=== PATIENT | male | born 1950 | race Caucasian/White ===

== ENCOUNTER 2023-09-05 16:57 | Inpatient (IN) | payer OTHER ==
[~2023-09-05 16:57] MED LIST: Iopamidol-370 76% 500 ML MDV (1 ML CHARGE) ONE
[2023-09-05] MEDS ORDERED: Metoprolol Tartrate 5 MG (5 mL) VIAL ONE (17:27)
[2023-09-05] MEDS ORDERED: Magnesium 2 GM/50 ML BAG (IN WATER) ONE ×2 (17:27→17:29)
[2023-09-05] MEDS ORDERED: CALCIUM GLUC 1 GM (50 ML) BAG ONE (17:31)
[2023-09-05 17:39] LABS: #Basophils 0.1 thou/uL (0.0-0.2); #Monocytes 1.7 thou/uL (0.11-0.59); #Neutrophils 14.8 thou/uL (1.40-6.50); %Basophils 0.3 % (0.0-1.0); %Eosinophils 0.1 % (0.0-10.0); %Lymphocytes 7.2 % (21.0-51.0); %Monocytes 9.6 % (0.0-10.0); %Neutrophils 82.4 % (42.0-75.0); Hematocrit 43.2 % (42.0-52.0); Hemoglobin 14.8 g/dL (14.0-18.0); Mean Corpuscular HGB CONC 34.3 g/dL (32.0-36.0); Mean Corpuscular Hemoglobin 31.7 pg (27.0-31.0); Mean Corpuscular Volume 92.5 fl (78.0-98.0); Mean Platelet Volume 10.8 fL (7.4-10.4); Platelet Count 215 10x3/uL (130-400); RBC Distribution Width 12.8 % (11.5-14.5); Red Blood Cell (RBC) Count 4.67 mill/uL (4.70-6.10); White Blood Cell (WBC) Count 17.9 10x3/uL (4.8-10.8)
[2023-09-05 18:02] LABS: ALT (SGPT) 9 U/L (8-55); AST (SGOT) 16 U/L (5-34); Albumin 3.6 g/dL (3.4-4.8); Alkaline Phosphatase 79 U/L (40-110); Anion Gap 12 mmol/L (10-20); BUN (Urea Nitrogen) 12 mg/dL (8.4-25.7); Bilirubin, Total 0.9 mg/dL (0.2-1.2); Calc. Creatinine Clearance 0 mL/min (70-130); Calcium 8.4 mg/dL (7.8-10.44); Carbon Dioxide 24 mmol/L (23-31); Chloride 102 mmol/L (98-107); Estimated GFR 92; Glucose 130 mg/dL (83-110); Magnesium 1.9 mg/dL (1.6-2.6); Potassium 4.2 mmol/L (3.5-5.1); Protein, Total 7.6 g/dL (5.8-8.1); Sodium 134 mmol/L (136-145)
[2023-09-05 18:09] LABS: Troponin I Less than 0.010 ng/mL (< 0.028)
[2023-09-05] MEDS ORDERED: Acetaminophen 325 MG TAB PO PRN (21:15)
[2023-09-05] MEDS ORDERED: Ondansetron ODT 4 MG TAB SL PRN (21:15)
[2023-09-05] MEDS ORDERED: Ondansetron PF 4 MG/2 ML Vial IVP PRN (21:15)
[2023-09-05 21:33] LABS: Bacteria/HPF None Seen HPF (None Seen); Bilirubin Negative (Negative); Blood, Urine Trace (Negative); CAUTI Indications for Culture Pelvic or flank pain; Clarity Clear (Clear); Glucose, Urine (Dipstick) Normal (Negative); Ketone, Urine Trace mg/dL (Negative); Leukocyte Negative Leu/uL (Negative); Nitrite Negative (Negative); Protein, Urine (Dipstick) Negative (Neg-Trace); RBC/HPF 0-3 HPF (0-3); Specific Gravity, Urine 1.008 (1.002-1.036); Squamous Epithelial None Seen HPF (0-3); Urobilinogen Normal mg/dL (Less than 2); WBC/HPF 0-3 HPF (0-3)
[2023-09-05 21:34] LABS: Urine Culture Reflex No No
[2023-09-05 22:16] LABS: Troponin I Less than 0.010 ng/mL (< 0.028)
[2023-09-05] MEDS ORDERED: Dextrose 50% Abboject 50 ML SYRINGE SLOW IVP PRN (23:39)
[2023-09-05] MEDS ORDERED: Dextrose 5% in Water 1,000 ML IV PRN (23:39)
[2023-09-05] MEDS ORDERED: HumaLOG 300 UNITS/3 ML VIAL SC PRN ×2 (23:39)
[2023-09-05] MEDS ORDERED: Glucagon 1 MG/ML KIT IM PRN (23:39)
[2023-09-05] MEDS ORDERED: Venlafaxine HCl XR 150 MG CAP PO SCH (23:59)
[2023-09-06] MEDS: Enoxaparin 100 MG (1 mL) SYRINGE SC SCH ×3 (00:04→23:09)
[2023-09-06 01:30] LABS: Troponin I Less than 0.010 ng/mL (< 0.028)
[2023-09-06] MEDS: Metoprolol Tartrate 5 MG (5 mL) VIAL IVP PRN ×3 (04:53→08:46)
[2023-09-06 06:38] LABS: #Monocytes 1.5 thou/uL (0.11-0.59); #Neutrophils 13.4 thou/uL (1.40-6.50); %Basophils 0.3 % (0.0-1.0); %Eosinophils 0.1 % (0.0-10.0); %Lymphocytes 5.7 % (21.0-51.0); %Monocytes 9.2 % (0.0-10.0); %Neutrophils 84.3 % (42.0-75.0); Hematocrit 51.2 % (42.0-52.0); Hemoglobin 17.2 g/dL (14.0-18.0); Mean Corpuscular HGB CONC 33.6 g/dL (32.0-36.0); Mean Corpuscular Hemoglobin 31.7 pg (27.0-31.0); Mean Corpuscular Volume 94.5 fl (78.0-98.0); Mean Platelet Volume 10.4 fL (7.4-10.4); Platelet Count 207 10x3/uL (130-400); RBC Distribution Width 13.1 % (11.5-14.5); Red Blood Cell (RBC) Count 5.42 mill/uL (4.70-6.10); White Blood Cell (WBC) Count 15.9 10x3/uL (4.8-10.8)
[2023-09-06 07:10] LABS: Anion Gap 14 mmol/L (10-20); BUN (Urea Nitrogen) 10 mg/dL (8.4-25.7); Calc. Creatinine Clearance 112 mL/min (70-130); Calcium 9.2 mg/dL (7.8-10.44); Carbon Dioxide 21 mmol/L (23-31); Chloride 104 mmol/L (98-107); Estimated GFR 94; Glucose 116 mg/dL (83-110); Sodium 135 mmol/L (136-145)
[2023-09-06] MEDS ORDERED: Enoxaparin 40 MG (0.4 mL) SYRINGE SC SCH (09:00)
[2023-09-06] MEDS ORDERED: dilTIAZem 25 MG/5 ML VIAL SLOW IVP SCH (12:30)
[2023-09-06] MEDS ORDERED: dilTIAZem 125 MG in Sodium Chloride 0.9% 100 ML IVPB SCH ×2 (13:00→23:30)
[2023-09-06 15:53] LABS: SARS-CoV-2 NAA Rapid Test Not Detected (NotDetected)
[2023-09-06] MEDS: Acetaminophen 500 MG TAB PO PRN (16:19)
[2023-09-06] MEDS: Venlafaxine HCl XR 150 MG CAP PO SCH (20:02)
[2023-09-06] MEDS: Metoprolol Tartrate 25 MG TAB PO SCH (20:44)
[2023-09-06] MEDS ORDERED: traMADol HCl 50 MG TAB PO PRN (22:46)
[2023-09-06] MEDS: traMADol HCl 50 MG TAB PO PRN (23:38)
[2023-09-07] MEDS ORDERED: Digoxin 0.5 MG/2 ML AMP SLOW IVP SCH (01:15)
[2023-09-07 06:27] LABS: Anion Gap 17 mmol/L (10-20); BUN (Urea Nitrogen) 18 mg/dL (8.4-25.7); Calc. Creatinine Clearance 107 mL/min (70-130); Calcium 8.4 mg/dL (7.8-10.44); Carbon Dioxide 18 mmol/L (23-31); Chloride 102 mmol/L (98-107); Estimated GFR 92; Glucose 97 mg/dL (83-110); Potassium 4.2 mmol/L (3.5-5.1); Sodium 133 mmol/L (136-145)
[2023-09-07 06:36] LABS: Lactic Acid 1.6 mmol/L (0.5-2.2)
[2023-09-07] MEDS: Metoprolol Tartrate 25 MG TAB PO SCH ×2 (09:43→20:44)
[2023-09-07 10:04] LABS: Hematocrit 42.8 % (42.0-52.0); Hemoglobin 14.4 g/dL (14.0-18.0); Manual Diff?? YES; Mean Corpuscular HGB CONC 33.6 g/dL (32.0-36.0); Mean Corpuscular Hemoglobin 31.2 pg (27.0-31.0); Mean Corpuscular Volume 92.8 fl (78.0-98.0); Mean Platelet Volume 11.1 fL (7.4-10.4); Platelet Count 175 10x3/uL (130-400); RBC Distribution Width 13.3 % (11.5-14.5); Red Blood Cell (RBC) Count 4.61 mill/uL (4.70-6.10); White Blood Cell (WBC) Count 20.3 10x3/uL (4.8-10.8)
[2023-09-07 10:29] LABS: Delete Auto Diff?? YES
[2023-09-07] MEDS ORDERED: Amiodarone 150 MG in Dextrose 5% in Water 100 ML IVPB SCH (11:00)
[2023-09-07] MEDS ORDERED: Furosemide 40 MG (4 mL) VIAL SLOW IVP SCH (11:30)
[2023-09-07] MEDS: Enoxaparin 100 MG (1 mL) SYRINGE SC SCH ×2 (11:37→23:01)
[2023-09-07] MEDS: Amiodarone 450 MG, Admixture Fee 1 EACH in Dextrose 5% in Water 250 ML IVPB SCH ×2 (11:40→20:00)
[2023-09-07 11:55] LABS: Band 8 % (5-11); Lymphocytes 3 % (21-51); Metamyelocyte 1 % (0-0); Monocytes 3 % (0-10); Neutrophil 85 % (42-75)
[2023-09-07 11:56] LABS: Platelet Adequacy Comment Appears Adequate
[2023-09-07] MEDS: Acetaminophen 500 MG TAB PO PRN (12:04)
[2023-09-07] MEDS ORDERED: VANCOMYCIN IVPB PRN (12:28)
[2023-09-07 12:30] LABS: Hemoglobin A1c 6.4 % (4.0-6.0)
[2023-09-07] MEDS ORDERED: Piperacillin/Tazobactam 3.375 GM in Sodium Chloride 0.9% 100 ML IVPB SCH (14:00)
[2023-09-07] MEDS ORDERED: Vancomycin (BATCH) 2 GM in Premix 1 BAG IVPB SCH (14:00)
[2023-09-07] MEDS ORDERED: Piperacillin/Tazobactam 4.5 GM in Sodium Chloride 0.9% 100 ML IVPB SCH (14:00)
[2023-09-07 14:05] LABS: Bacteria/HPF None Seen HPF (None Seen); Bilirubin Negative (Negative); Blood, Urine 2+ (Negative); Clarity Turbid (Clear); Glucose, Urine (Dipstick) Normal (Negative); Ketone, Urine Negative (Negative); Leukocyte 25 Leu/uL (Negative); Nitrite Negative (Negative); Protein, Urine (Dipstick) 100 mg/dL (Neg-Trace); Specific Gravity, Urine 1.029 (1.002-1.036); Squamous Epithelial None Seen HPF (0-3); pH, Urine 5.5 (5.0-9.0)
[2023-09-07] MEDS ORDERED: dilTIAZem 125 MG in Sodium Chloride 0.9% 100 ML IVPB SCH (16:46)
[2023-09-07] MEDS: Piperacillin/Tazobactam 3.375 GM in Sodium Chloride 0.9% 100 ML IVPB SCH (20:44)
[2023-09-07] MEDS: Venlafaxine HCl XR 150 MG CAP PO SCH (20:45)
[2023-09-08] MEDS: Piperacillin/Tazobactam 3.375 GM in Sodium Chloride 0.9% 100 ML IVPB SCH ×3 (03:09→19:55)
[2023-09-08] MEDS: Vancomycin 1 GM in Premix 1 BAG IVPB SCH ×2 (03:16→16:26)
[2023-09-08] MEDS: Acetaminophen 500 MG TAB PO PRN (03:20)
[2023-09-08 04:39] LABS: Hematocrit 40.9 % (42.0-52.0); Manual Diff?? YES; Mean Corpuscular HGB CONC 34.2 g/dL (32.0-36.0); Mean Corpuscular Hemoglobin 31.8 pg (27.0-31.0); Mean Platelet Volume 11.4 fL (7.4-10.4); Platelet Count 157 10x3/uL (130-400); RBC Distribution Width 13.2 % (11.5-14.5); White Blood Cell (WBC) Count 20.4 10x3/uL (4.8-10.8)
[2023-09-08 05:01] LABS: Anion Gap 16 mmol/L (10-20); BUN (Urea Nitrogen) 24 mg/dL (8.4-25.7); Calc. Creatinine Clearance 98 mL/min (70-130); Calcium 8.2 mg/dL (7.8-10.44); Carbon Dioxide 20 mmol/L (23-31); Chloride 97 mmol/L (98-107); Estimated GFR 90; Glucose 102 mg/dL (83-110); Magnesium 1.9 mg/dL (1.6-2.6); Potassium 3.5 mmol/L (3.5-5.1); Sodium 129 mmol/L (136-145)
[2023-09-08 05:17] LABS: Delete Auto Diff?? YES
[2023-09-08 05:51] LABS: Band 27 % (5-11); Eosinophils 1 % (0-10); Lymphocytes 6 % (21-51); Monocytes 4 % (0-10); Neutrophil 62 % (42-75)
[2023-09-08] MEDS: Metoprolol Tartrate 25 MG TAB PO SCH ×2 (08:47→19:54)
[2023-09-08] MEDS ORDERED: Lidocaine 1% (PF) 30 ML VIAL ONE (09:57)
[2023-09-08] MEDS ORDERED: CEFAZOLIN 2 GM in Sodium Chloride 0.9% 100 ML IVPB SCH (10:45)
[2023-09-08 11:58] LABS: RBC Count-Automated (BF) 164710 /cu.mm
[2023-09-08 12:00] LABS: Body Fluid Source Synovial Fluid; WBC/Nucleated-Auto (BF) Greater than 51000 /cu.mm
[2023-09-08 12:01] LABS: Clarity Cloudy/Turbid (Clear); Tube # 1
[2023-09-08 12:02] LABS: BF Color Gray
[2023-09-08] MEDS: Amiodarone 450 MG, Admixture Fee 1 EACH in Dextrose 5% in Water 250 ML IVPB SCH (12:03)
[2023-09-08 12:08] LABS: Cell Count Non Hematic 4 %; Eosinophils 14 %; Lymphocytes 14 %
[2023-09-08 12:15] LABS: BF Segmented Neutrophils 68 %
[2023-09-08] MEDS: Amiodarone 200 MG TAB PO SCH (19:54)
[2023-09-08] MEDS: Venlafaxine HCl XR 150 MG CAP PO SCH (19:54)
[2023-09-08] MEDS: Clindamycin/D5W 900 MG in Premix 1 BAG IVPB SCH (22:01)
[2023-09-09 03:25] LABS: Hematocrit 39.6 % (42.0-52.0); Hemoglobin 13.6 g/dL (14.0-18.0); Mean Corpuscular HGB CONC 34.3 g/dL (32.0-36.0); Mean Corpuscular Hemoglobin 31.1 pg (27.0-31.0); Mean Corpuscular Volume 90.6 fl (78.0-98.0); Mean Platelet Volume 11.2 fL (7.4-10.4); Platelet Count 174 10x3/uL (130-400); RBC Distribution Width 12.9 % (11.5-14.5); Red Blood Cell (RBC) Count 4.37 mill/uL (4.70-6.10); White Blood Cell (WBC) Count 20.9 10x3/uL (4.8-10.8)
[2023-09-09] MEDS: Vancomycin 1 GM in Premix 1 BAG IVPB SCH (03:35)
[2023-09-09 04:00] LABS: Vancomycin, Trough 10.3 ug/mL
[2023-09-09 04:01] LABS: Anion Gap 11 mmol/L (10-20); BUN (Urea Nitrogen) 18 mg/dL (8.4-25.7); Calc. Creatinine Clearance 125 mL/min (70-130); Calcium 8.1 mg/dL (7.8-10.44); Carbon Dioxide 25 mmol/L (23-31); Chloride 95 mmol/L (98-107); Estimated GFR 97; Glucose 93 mg/dL (83-110); Potassium 3.1 mmol/L (3.5-5.1); Sodium 128 mmol/L (136-145)
[2023-09-09] MEDS: Piperacillin/Tazobactam 3.375 GM in Sodium Chloride 0.9% 100 ML IVPB SCH ×3 (04:51→21:02)
[2023-09-09] MEDS ORDERED: Vancomycin HCl 500 MG in Sodium Chloride 0.9% 100 ML IVPB SCH (05:00)
[2023-09-09] MEDS: Clindamycin/D5W 900 MG in Premix 1 BAG IVPB SCH ×2 (05:52→14:02)
[2023-09-09] MEDS ORDERED: Potassium Chloride 20 MEQ TAB PO SCH (08:00)
[2023-09-09] MEDS ORDERED: Potassium Chloride 20 MEQ in Premix 1 BAG IVPB SCH (08:00)
[2023-09-09] MEDS: Metoprolol Tartrate 25 MG TAB PO SCH ×2 (09:02→21:02)
[2023-09-09] MEDS: Amiodarone 200 MG TAB PO SCH ×3 (09:02→21:02)
[2023-09-09] MEDS ORDERED: EPINEPHrine 1 MG/ML VIAL ONE (15:55)
[2023-09-09] MEDS ORDERED: Bupivacaine PF 0.5% 30 ML VIAL ONE (15:55)
[2023-09-09] MEDS ORDERED: Vancomycin (BATCH) 1.5 GM/300 ML BAG ONE (16:19)
[2023-09-09] MEDS ORDERED: PROPOFOL 20 ML ONE (16:42)
[2023-09-09] MEDS ORDERED: fentaNYL PF 100 MCG/2 ML SYRINGE ONE (16:42)
[2023-09-09] MEDS ORDERED: Lidocaine 1% PF 5 ML VIAL ONE (16:44)
[2023-09-09] MEDS ORDERED: Dexamethasone 4 mg/ml Vial ONE (17:12)
[2023-09-09] MEDS ORDERED: Ondansetron PF 4 MG/2 ML Vial ONE (17:12)
[2023-09-09] MEDS ORDERED: PHENYLEPHRINE-NS 100 MCG/ML 10 ML SYRINGE ONE ×2 (17:13→17:37)
[2023-09-09] MEDS ORDERED: Metoprolol Tartrate 5 MG (5 mL) VIAL ONE (17:23)
[2023-09-09] MEDS ORDERED: Ketorolac Tromethamine 30 MG (1 mL) VIAL ONE (17:44)
[2023-09-09] MEDS ORDERED: Ondansetron HCl/PF 4 MG/2 ML Vial IVP PRN (17:46)
[2023-09-09] MEDS: Vancomycin (BATCH) 1.5 GM in Premix 1 BAG IVPB SCH (18:32)
[2023-09-09] MEDS: Linezolid 600 MG in Premix 1 BAG IVPB SCH (19:55)
[2023-09-09 20:20] LABS: RBC Count-Automated (BF) 51984 /cu.mm; WBC/Nucleated-Auto (BF) 7022 /cu.mm
[2023-09-09 20:41] LABS: BF Color Red; Body Fluid Source Synovial Fluid; Clarity Cloudy/Turbid (Clear); Tube # CUP
[2023-09-09 20:57] LABS: BF Segmented Neutrophils 89 %; Cell Count Non Hematic 9 %; Lymphocytes 2 %
[2023-09-09] MEDS ORDERED: Linezolid 600 MG in Syringe 0 ML IVPB SCH (21:00)
[2023-09-10] MEDS: Piperacillin/Tazobactam 3.375 GM in Sodium Chloride 0.9% 100 ML IVPB SCH ×3 (03:52→20:21)
[2023-09-10] MEDS: Vancomycin (BATCH) 1.5 GM in Premix 1 BAG IVPB SCH ×2 (03:53→16:28)
[2023-09-10 05:14] LABS: Hematocrit 39.3 % (42.0-52.0); Hemoglobin 13.4 g/dL (14.0-18.0); Mean Corpuscular HGB CONC 34.1 g/dL (32.0-36.0); Mean Corpuscular Hemoglobin 31.7 pg (27.0-31.0); Mean Corpuscular Volume 92.9 fl (78.0-98.0); Mean Platelet Volume 11.3 fL (7.4-10.4); Platelet Count 181 10x3/uL (130-400); RBC Distribution Width 13.4 % (11.5-14.5); Red Blood Cell (RBC) Count 4.23 mill/uL (4.70-6.10)
[2023-09-10 05:39] LABS: Anion Gap 14 mmol/L (10-20); BUN (Urea Nitrogen) 32 mg/dL (8.4-25.7); Calc. Creatinine Clearance 53 mL/min (70-130); Calcium 7.9 mg/dL (7.8-10.44); Carbon Dioxide 21 mmol/L (23-31); Chloride 103 mmol/L (98-107); Estimated GFR 43; Glucose 122 mg/dL (83-110); Magnesium 2.4 mg/dL (1.6-2.6); Sodium 134 mmol/L (136-145)
[2023-09-10] MEDS: Metoprolol Tartrate 25 MG TAB PO SCH ×2 (09:37→20:23)
[2023-09-10] MEDS: Amiodarone 200 MG TAB PO SCH ×3 (09:37→20:23)
[2023-09-10] MEDS: Linezolid 600 MG in Premix 1 BAG IVPB SCH ×2 (12:24→20:22)
[2023-09-10] MEDS: Enoxaparin 100 MG (1 mL) SYRINGE SC SCH (12:25)
[2023-09-10] MEDS ORDERED: Sodium Chloride 0.9% 500 ML IV SCH (13:30)
[2023-09-10 15:48] LABS: Vancomycin, Trough 37.9 ug/mL
[2023-09-10] MEDS ORDERED: Vancomycin (BATCH) 1.5 GM in Premix 1 BAG IVPB SCH (16:15)
[2023-09-10] MEDS: Sodium Chloride 0.9% 1,000 ML IV SCH (16:27)
[2023-09-11] MEDS: Enoxaparin 100 MG (1 mL) SYRINGE SC SCH ×2 (00:57→11:45)
[2023-09-11] MEDS: traMADol HCl 50 MG TAB PO PRN ×2 (00:58→22:00)
[2023-09-11] MEDS: Sodium Chloride 0.9% 1,000 ML IV SCH ×3 (00:59→16:27)
[2023-09-11] MEDS: Piperacillin/Tazobactam 3.375 GM in Sodium Chloride 0.9% 100 ML IVPB SCH ×3 (05:19→19:17)
[2023-09-11 05:30] LABS: Hematocrit 39.5 % (42.0-52.0); Hemoglobin 13.2 g/dL (14.0-18.0); Manual Diff?? YES; Mean Corpuscular HGB CONC 33.4 g/dL (32.0-36.0); Mean Corpuscular Hemoglobin 31.3 pg (27.0-31.0); Mean Corpuscular Volume 93.6 fl (78.0-98.0); Mean Platelet Volume 11.6 fL (7.4-10.4); Platelet Count 211 10x3/uL (130-400); RBC Distribution Width 13.7 % (11.5-14.5); Red Blood Cell (RBC) Count 4.22 mill/uL (4.70-6.10); White Blood Cell (WBC) Count 19.3 10x3/uL (4.8-10.8)
[2023-09-11 05:41] LABS: Delete Auto Diff?? YES
[2023-09-11 05:59] LABS: Vancomycin, Trough 31.8 ug/mL
[2023-09-11 06:00] LABS: Anion Gap 14 mmol/L (10-20); BUN (Urea Nitrogen) 61 mg/dL (8.4-25.7); Calc. Creatinine Clearance 24 mL/min (70-130); Calcium 7.5 mg/dL (7.8-10.44); Carbon Dioxide 24 mmol/L (23-31); Chloride 101 mmol/L (98-107); Estimated GFR 16; Glucose 85 mg/dL (83-110); Potassium 3.8 mmol/L (3.5-5.1); Sodium 135 mmol/L (136-145)
[2023-09-11 06:51] LABS: Band 1 % (5-11); Burr Cells MODERATE= 6-15 cells HPF (0-1); CellaVision Operator ID lab.abc; Lymphocytes 4 % (21-51); Metamyelocyte 1 % (0-0); Monocytes 6 % (0-10); Myelocyte 4 % (0-0); Neutrophil 80 % (42-75); Platelet Adequacy Comment Platelets Normal; Poikilocytosis SLIGHT = 6-15 cells HPF (0-5); Polychromasia SLIGHT = 2-3 cells HPF (0-2); Reactive Lymphocytes 2 % (0-10); Total Cell Count 100
[2023-09-11] MEDS: Amiodarone 200 MG TAB PO SCH ×3 (09:13→22:00)
[2023-09-11] MEDS: Linezolid 600 MG in Premix 1 BAG IVPB SCH ×2 (09:14→22:03)
[2023-09-11] MEDS: Metoprolol Tartrate 25 MG TAB PO SCH ×2 (09:14→21:59)
[2023-09-11] MEDS: Albumin 25% 25 GM (100 mL) BOT IVPB SCH ×2 (11:25→18:02)
[2023-09-11] MEDS ORDERED: Sodium Chloride 0.9% 1,000 ML IV SCH (16:05)
[2023-09-12] MEDS: Albumin 25% 25 GM (100 mL) BOT IVPB SCH ×4 (01:12→17:57)
[2023-09-12] MEDS: Sodium Chloride 0.9% 1,000 ML IV SCH (01:12)
[2023-09-12 04:26] LABS: Hematocrit 37.1 % (42.0-52.0); Hemoglobin 12.2 g/dL (14.0-18.0); Manual Diff?? YES; Mean Corpuscular HGB CONC 32.9 g/dL (32.0-36.0); Mean Corpuscular Hemoglobin 31.4 pg (27.0-31.0); Mean Corpuscular Volume 95.6 fl (78.0-98.0); Mean Platelet Volume 11.2 fL (7.4-10.4); Platelet Count 184 10x3/uL (130-400); RBC Distribution Width 14.5 % (11.5-14.5); Red Blood Cell (RBC) Count 3.88 mill/uL (4.70-6.10); White Blood Cell (WBC) Count 15.7 10x3/uL (4.8-10.8)
[2023-09-12 04:30] LABS: Delete Auto Diff?? YES
[2023-09-12 05:00] LABS: Anion Gap 16 mmol/L (10-20); BUN (Urea Nitrogen) 75 mg/dL (8.4-25.7); Band 5 % (5-11); Calc. Creatinine Clearance 18 mL/min (70-130); Calcium 7.1 mg/dL (7.8-10.44); Carbon Dioxide 16 mmol/L (23-31); CellaVision Operator ID LAB.CLH1; Chloride 105 mmol/L (98-107); Eosinophils 2 % (0-10); Estimated GFR 11; Glucose 80 mg/dL (83-110); Hypochromia SLIGHT = 6-15 cells HPF (0-5); Lymphocytes 12 % (21-51); Metamyelocyte 1 % (0-0); Monocytes 1 % (0-10); Neutrophil 76 % (42-75); Platelet Adequacy Comment Platelets Normal; Polychromasia SLIGHT = 2-3 cells HPF (0-2); Potassium 4.2 mmol/L (3.5-5.1); Reactive Lymphocytes 3 % (0-10); Sodium 133 mmol/L (136-145); Total Cell Count 98
[2023-09-12] MEDS: Piperacillin/Tazobactam 3.375 GM in Sodium Chloride 0.9% 100 ML IVPB SCH ×2 (05:48→12:17)
[2023-09-12] MEDS: Sodium Bicarbonate 75 MEQ in Dextrose 5 %-0.45 % NaCl 1,000 ML IV SCH ×2 (08:20→17:48)
[2023-09-12] MEDS: Linezolid 600 MG in Premix 1 BAG IVPB SCH (08:23)
[2023-09-12] MEDS: Sodium Bicarbonate Tab 325 MG TAB PO SCH ×2 (08:23→21:34)
[2023-09-12] MEDS: Metoprolol Tartrate 25 MG TAB PO SCH ×2 (08:30→22:06)
[2023-09-12] MEDS: Amiodarone 200 MG TAB PO SCH ×3 (08:33→22:06)
[2023-09-12] MEDS ORDERED: Sodium Chloride 0.9% 1,000 ML IV SCH (08:45)
[2023-09-12] MEDS: Enoxaparin 100 MG (1 mL) SYRINGE SC SCH (12:17)
[2023-09-12] MEDS: cefTRIAXone\\ROCEPHIN 2 GM in Sodium Chloride 0.9% 100 ML IVPB SCH (14:58)
[2023-09-12 17:32] LABS: Anion Gap 16 mmol/L (10-20); BUN (Urea Nitrogen) 77 mg/dL (8.4-25.7); Calc. Creatinine Clearance 16 mL/min (70-130); Calcium 7.2 mg/dL (7.8-10.44); Carbon Dioxide 19 mmol/L (23-31); Chloride 102 mmol/L (98-107); Estimated GFR 10; Glucose 106 mg/dL (83-110); Potassium 3.9 mmol/L (3.5-5.1); Sodium 133 mmol/L (136-145)
[2023-09-13] MEDS: Sodium Bicarbonate 75 MEQ in Dextrose 5 %-0.45 % NaCl 1,000 ML IV SCH ×3 (01:06→14:52)
[2023-09-13] MEDS: Albumin 25% 25 GM (100 mL) BOT IVPB SCH ×2 (01:06→05:24)
[2023-09-13 05:59] LABS: Hematocrit 34.6 % (42.0-52.0); Hemoglobin 11.7 g/dL (14.0-18.0); Manual Diff?? YES; Mean Corpuscular HGB CONC 33.8 g/dL (32.0-36.0); Mean Corpuscular Hemoglobin 31.5 pg (27.0-31.0); Mean Corpuscular Volume 93.3 fl (78.0-98.0); Mean Platelet Volume 11.4 fL (7.4-10.4); Platelet Count 203 10x3/uL (130-400); RBC Distribution Width 14.5 % (11.5-14.5); Red Blood Cell (RBC) Count 3.71 mill/uL (4.70-6.10); White Blood Cell (WBC) Count 12.9 10x3/uL (4.8-10.8)
[2023-09-13 06:19] LABS: Anion Gap 17 mmol/L (10-20); BUN (Urea Nitrogen) 78 mg/dL (8.4-25.7); Calc. Creatinine Clearance 17 mL/min (70-130); Carbon Dioxide 18 mmol/L (23-31); Chloride 103 mmol/L (98-107); Estimated GFR 9; Glucose 137 mg/dL (83-110); Potassium 3.5 mmol/L (3.5-5.1); Sodium 134 mmol/L (136-145)
[2023-09-13 06:27] LABS: Delete Auto Diff?? YES
[2023-09-13 07:21] LABS: CellaVision Operator ID LAB.NR; Eosinophils 3 % (0-10); Lymphocytes 6 % (21-51); Macrocytosis SLIGHT = 6-15 cells HPF (0-5); Monocytes 11 % (0-10); Neutrophil 80 % (42-75); Platelet Adequacy Comment Platelets Normal; Polychromasia SLIGHT = 2-3 cells HPF (0-2); Total Cell Count 100
[2023-09-13] MEDS: Amiodarone 200 MG TAB PO SCH ×3 (10:06→20:53)
[2023-09-13] MEDS: Metoprolol Tartrate 25 MG TAB PO SCH ×2 (10:06→20:53)
[2023-09-13] MEDS: Sodium Bicarbonate Tab 325 MG TAB PO SCH ×2 (10:07→20:53)
[2023-09-13] MEDS: Acetaminophen 500 MG TAB PO PRN (10:08)
[2023-09-13] MEDS: cefTRIAXone\\ROCEPHIN 2 GM in Sodium Chloride 0.9% 100 ML IVPB SCH (13:23)
[2023-09-13] MEDS: Enoxaparin 100 MG (1 mL) SYRINGE SC SCH (13:24)
[2023-09-14] MEDS: Sodium Bicarbonate 75 MEQ in Dextrose 5 %-0.45 % NaCl 1,000 ML IV SCH ×2 (00:10→11:04)
[2023-09-14 04:34] LABS: Hematocrit 33.2 % (42.0-52.0); Hemoglobin 11.4 g/dL (14.0-18.0); Manual Diff?? YES; Mean Corpuscular HGB CONC 34.3 g/dL (32.0-36.0); Mean Corpuscular Hemoglobin 31.1 pg (27.0-31.0); Platelet Count 248 10x3/uL (130-400); RBC Distribution Width 14.3 % (11.5-14.5); Red Blood Cell (RBC) Count 3.67 mill/uL (4.70-6.10); White Blood Cell (WBC) Count 16.7 10x3/uL (4.8-10.8)
[2023-09-14 04:52] LABS: Anion Gap 17 mmol/L (10-20); BUN (Urea Nitrogen) 78 mg/dL (8.4-25.7); Calc. Creatinine Clearance 14 mL/min (70-130); Calcium 7.3 mg/dL (7.8-10.44); Carbon Dioxide 21 mmol/L (23-31); Chloride 100 mmol/L (98-107); Estimated GFR 7; Glucose 112 mg/dL (83-110); Potassium 3.4 mmol/L (3.5-5.1); Sodium 135 mmol/L (136-145)
[2023-09-14 05:16] LABS: Delete Auto Diff?? YES; Mean Corpuscular Volume 90.5 fl (78.0-98.0)
[2023-09-14 05:44] LABS: Bilirubin Negative (Negative); Blood, Urine Trace (Negative); Glucose, Urine (Dipstick) Negative (Negative); Ketone, Urine Negative (Negative); Leukocyte Negative (Negative); Nitrite Negative (Negative); Protein, Urine (Dipstick) Negative (Neg-Trace); Urobilinogen 0.2 mg/dL (Less than 2); pH, Urine 5.5 (5.0-9.0)
[2023-09-14 05:45] LABS: Clarity Clear (Clear)
[2023-09-14 05:58] LABS: Squamous Epithelial None Seen HPF (0-3)
[2023-09-14 06:04] LABS: Bacteria/HPF 1+ HPF (None Seen)
[2023-09-14 06:28] LABS: Band 1 % (5-11); CellaVision Operator ID LAB.NR; Lymphocytes 5 % (21-51); Macrocytosis SLIGHT = 6-15 cells HPF (0-5); Monocytes 10 % (0-10); Neutrophil 84 % (42-75); Platelet Adequacy Comment Platelets Normal; Polychromasia SLIGHT = 2-3 cells HPF (0-2); Total Cell Count 101
[2023-09-14] MEDS: Amiodarone 200 MG TAB PO SCH ×3 (09:01→20:23)
[2023-09-14] MEDS: Sodium Bicarbonate Tab 325 MG TAB PO SCH ×2 (09:02→20:23)
[2023-09-14] MEDS: Metoprolol Tartrate 25 MG TAB PO SCH ×2 (09:02→20:23)
[2023-09-14] MEDS ORDERED: Bupivacaine PF 0.5% 30 ML VIAL ONE (10:55)
[2023-09-14] MEDS ORDERED: EPINEPHrine 1 MG/ML VIAL ONE (10:55)
[2023-09-14] MEDS ORDERED: Lidocaine 2% PF 5 ML VIAL ONE (10:55)
[2023-09-14] MEDS ORDERED: Protamine Sulfate 50 MG/5 ML VIAL ONE (10:59)
[2023-09-14] MEDS: Enoxaparin 100 MG (1 mL) SYRINGE SC SCH (11:04)
[2023-09-14] MEDS ORDERED: Midazolam HCl 2 mg/2 ml Vial ONE (11:43)
[2023-09-14] MEDS ORDERED: fentaNYL 50 mcg/mL 1 mL Vial ONE (11:43)
[2023-09-14] MEDS ORDERED: PROPOFOL 20 ML ONE (11:43)
[2023-09-14] MEDS ORDERED: Heparin 10,000 UNITS/ 10 ML VIAL ONE (12:06)
[2023-09-14] MEDS: cefTRIAXone\\ROCEPHIN 2 GM in Sodium Chloride 0.9% 100 ML IVPB SCH (14:30)
[2023-09-14 17:35] LABS: HBSAB Concentration Less than 8.00 mIU/mL; HBSAg Index 0.21 S/CO (0-0.99); Hep B Core Total Ab Non-Reactive (NonReactive); Hep B Core Total Index 0.08 S/CO (0-0.79); Hep B Surf AB Non-Reactive (NonReactive); Hep B Surf Ag Non-Reactive S/CO (NonReactive); Hep C IgG Ab Non-Reactive S/CO (NonReactive); Hep C Index 0.08 S/CO (0-0.79)
[2023-09-15 00:21] LABS: Hematocrit 32.1 % (42.0-52.0); Hemoglobin 11.4 g/dL (14.0-18.0); Manual Diff?? YES; Mean Corpuscular HGB CONC 35.5 g/dL (32.0-36.0); Mean Corpuscular Hemoglobin 32.1 pg (27.0-31.0); Mean Corpuscular Volume 90.4 fl (78.0-98.0); Mean Platelet Volume 10.7 fL (7.4-10.4); Platelet Count 274 10x3/uL (130-400); RBC Distribution Width 14.1 % (11.5-14.5); Red Blood Cell (RBC) Count 3.55 mill/uL (4.70-6.10)
[2023-09-15 00:28] LABS: Delete Auto Diff?? YES
[2023-09-15 00:33] LABS: INR-International Normal Ratio 1.1
[2023-09-15 00:35] LABS: PTT 32.2 sec (22.9-36.1)
[2023-09-15 00:48] LABS: Band 3 % (5-11); CellaVision Operator ID LAB.CLH1; Eosinophils 2 % (0-10); Hypochromia SLIGHT = 6-15 cells HPF (0-5); Lymphocytes 5 % (21-51); Metamyelocyte 2 % (0-0); Monocytes 1 % (0-10); Myelocyte 2 % (0-0); Neutrophil 81 % (42-75); Platelet Adequacy Comment Platelets Normal; Polychromasia SLIGHT = 2-3 cells HPF (0-2); Reactive Lymphocytes 1 % (0-10); Total Cell Count 101
[2023-09-15] MEDS ORDERED: Electrolyte Replacement Protocol 1 EACH FS SCH (07:45)
[2023-09-15 07:58] LABS: Hematocrit 31.8 % (42.0-52.0); Hemoglobin 10.9 g/dL (14.0-18.0); Manual Diff?? YES; Mean Corpuscular HGB CONC 34.3 g/dL (32.0-36.0); Mean Corpuscular Hemoglobin 31.4 pg (27.0-31.0); Mean Corpuscular Volume 91.6 fl (78.0-98.0); Mean Platelet Volume 10.6 fL (7.4-10.4); Platelet Count 285 10x3/uL (130-400); RBC Distribution Width 14.3 % (11.5-14.5); Red Blood Cell (RBC) Count 3.47 mill/uL (4.70-6.10); White Blood Cell (WBC) Count 15.8 10x3/uL (4.8-10.8)
[2023-09-15 08:01] LABS: Delete Auto Diff?? YES
[2023-09-15] MEDS: Metoprolol Tartrate 25 MG TAB PO SCH ×2 (08:13→21:16)
[2023-09-15] MEDS: Amiodarone 200 MG TAB PO SCH ×3 (08:14→21:16)
[2023-09-15 08:25] LABS: Anion Gap 14 mmol/L (10-20); BUN (Urea Nitrogen) 68 mg/dL (8.4-25.7); Calc. Creatinine Clearance 15 mL/min (70-130); Calcium 7.7 mg/dL (7.8-10.44); Carbon Dioxide 21 mmol/L (23-31); Chloride 102 mmol/L (98-107); Estimated GFR 8; Glucose 97 mg/dL (83-110); Potassium 3.2 mmol/L (3.5-5.1); Sodium 134 mmol/L (136-145)
[2023-09-15 08:36] LABS: HBSAg Index 0.23 S/CO (0-0.99); Hep B Surf Ag Non-Reactive S/CO (NonReactive); Hep C IgG Ab Non-Reactive S/CO (NonReactive); Hep C Index 0.07 S/CO (0-0.79)
[2023-09-15 08:59] LABS: Magnesium 2.2 mg/dL (1.6-2.6)
[2023-09-15] MEDS ORDERED: Tuberculin PPD 0.1 ML VIAL I-DERMAL SCH (09:00)
[2023-09-15 10:00] LABS: Band 2 % (5-11); Lymphocytes 6 % (21-51); Monocytes 5 % (0-10); Neutrophil 87 % (42-75); Polychromasia SLIGHT = 2-3 cells (100X) (0-2/hpf)
[2023-09-15 10:01] LABS: Platelet Adequacy Comment Platelets Normal
[2023-09-15] MEDS ORDERED: Lidocaine 1% w/Epinephrine 1:200K 30 ML VIAL FS SCH (12:45)
[2023-09-15] MEDS ORDERED: Lidocaine 1% w/Epinephrine 1:100K 20 ML VIAL FS SCH (13:00)
[2023-09-15] MEDS: cefTRIAXone\\ROCEPHIN 2 GM in Sodium Chloride 0.9% 100 ML IVPB SCH (15:02)
[2023-09-15 18:53] LABS: Campy jejuni + coli by PCR Negative (Negative); STEC Shiga Toxin 1+2 Negative (Negative); Salmonella spp. by PCR Negative (Negative); Shigella spp + EIEC by PCR Negative (Negative)
[2023-09-15] MEDS: traMADol HCl 50 MG TAB PO PRN (21:15)
[2023-09-16 04:02] LABS: Hematocrit 28.3 % (42.0-52.0); Hemoglobin 9.8 g/dL (14.0-18.0); Manual Diff?? YES; Mean Corpuscular HGB CONC 34.6 g/dL (32.0-36.0); Mean Corpuscular Hemoglobin 31.5 pg (27.0-31.0); Mean Platelet Volume 9.9 fL (7.4-10.4); Platelet Count 258 10x3/uL (130-400); Red Blood Cell (RBC) Count 3.11 mill/uL (4.70-6.10)
[2023-09-16 04:09] LABS: Delete Auto Diff?? YES
[2023-09-16 04:24] LABS: Anion Gap 15 mmol/L (10-20); BUN (Urea Nitrogen) 47 mg/dL (8.4-25.7); Calc. Creatinine Clearance 18 mL/min (70-130); Calcium 7.7 mg/dL (7.8-10.44); Carbon Dioxide 24 mmol/L (23-31); Chloride 101 mmol/L (98-107); Estimated GFR 10; Glucose 108 mg/dL (83-110); Phosphorus 4.5 mg/dL (2.3-4.7); Potassium 3.1 mmol/L (3.5-5.1); Sodium 137 mmol/L (136-145)
[2023-09-16 04:51] LABS: Band 5 % (5-11); Blast 1 % (0-0); CellaVision Operator ID LAB.CLH1; Eosinophils 1 % (0-10); Hypochromia SLIGHT = 6-15 cells HPF (0-5); Large Platelets 1.9 % (0-5); Lymphocytes 11 % (21-51); Monocytes 4 % (0-10); Myelocyte 1 % (0-0); Neutrophil 75 % (42-75); Nucleated RBC (Manual Ct) 1 % (0); Platelet Adequacy Comment Platelets Normal; Polychromasia SLIGHT = 2-3 cells HPF (0-2); Promyelocytes 1 % (0-0); Reactive Lymphocytes 2 % (0-10); Total Cell Count 103
[2023-09-16] MEDS: Metoprolol Tartrate 25 MG TAB PO SCH ×2 (10:45→21:11)
[2023-09-16] MEDS: Amiodarone 200 MG TAB PO SCH ×3 (10:48→21:11)
[2023-09-16] MEDS: Acetaminophen 500 MG TAB PO PRN (13:35)
[2023-09-16] MEDS: traMADol HCl 50 MG TAB PO PRN ×2 (13:35→22:34)
[2023-09-16] MEDS: Calcitriol 0.25 MCG CAP PO SCH (13:36)
[2023-09-16] MEDS: cefTRIAXone\\ROCEPHIN 2 GM in Sodium Chloride 0.9% 100 ML IVPB SCH (13:36)
[2023-09-17 06:34] LABS: Hematocrit 28.8 % (42.0-52.0); Hemoglobin 9.7 g/dL (14.0-18.0); Manual Diff?? YES; Mean Corpuscular HGB CONC 33.7 g/dL (32.0-36.0); Mean Corpuscular Hemoglobin 30.8 pg (27.0-31.0); Mean Corpuscular Volume 91.4 fl (78.0-98.0); Mean Platelet Volume 10.2 fL (7.4-10.4); Platelet Count 252 10x3/uL (130-400); Red Blood Cell (RBC) Count 3.15 mill/uL (4.70-6.10); White Blood Cell (WBC) Count 16.3 10x3/uL (4.8-10.8)
[2023-09-17 06:36] LABS: Delete Auto Diff?? YES
[2023-09-17 07:02] LABS: Anion Gap 15 mmol/L (10-20); BUN (Urea Nitrogen) 25 mg/dL (8.4-25.7); Calc. Creatinine Clearance 27 mL/min (70-130); Calcium 7.9 mg/dL (7.8-10.44); Carbon Dioxide 26 mmol/L (23-31); Chloride 100 mmol/L (98-107); Estimated GFR 16; Glucose 98 mg/dL (83-110); Sodium 138 mmol/L (136-145)
[2023-09-17] MEDS ORDERED: Potassium Chloride 20 MEQ TAB PO SCH (07:15)
[2023-09-17 07:32] LABS: Band 1 % (5-11); CellaVision Operator ID lab.dlt; Eosinophils 6 % (0-10); Lymphocytes 7 % (21-51); Monocytes 5 % (0-10); Neutrophil 80 % (42-75); Platelet Adequacy Comment Platelets Normal; Polychromasia SLIGHT = 2-3 cells HPF (0-2); Reactive Lymphocytes 1 % (0-10); Total Cell Count 100
[2023-09-17] MEDS: Amiodarone 200 MG TAB PO SCH ×3 (09:08→20:50)
[2023-09-17] MEDS: Metoprolol Tartrate 25 MG TAB PO SCH ×2 (09:08→20:50)
[2023-09-17] MEDS: Calcitriol 0.25 MCG CAP PO SCH (09:08)
[2023-09-17] MEDS: Apixaban 2.5 MG TAB PO SCH ×2 (09:08→20:50)
[2023-09-17] MEDS: READ PPD TEST SITE PO SCH (09:09)
[2023-09-17] MEDS: cefTRIAXone\\ROCEPHIN 2 GM in Sodium Chloride 0.9% 100 ML IVPB SCH (14:41)
[2023-09-17] MEDS: Acetaminophen 500 MG TAB PO PRN (20:50)
[2023-09-18 06:34] LABS: Hematocrit 27.8 % (42.0-52.0); Hemoglobin 9.4 g/dL (14.0-18.0); Mean Corpuscular HGB CONC 33.8 g/dL (32.0-36.0); Mean Corpuscular Hemoglobin 31.4 pg (27.0-31.0); Platelet Count 257 10x3/uL (130-400); Red Blood Cell (RBC) Count 2.99 mill/uL (4.70-6.10); White Blood Cell (WBC) Count 16.3 10x3/uL (4.8-10.8)
[2023-09-18 06:35] LABS: #Basophils 0.1 thou/uL (0.0-0.2); #Eosinphils 0.3 thou/uL (0.0-0.7); #Monocytes 1.5 thou/uL (0.11-0.59); #Neutrophils 12.1 thou/uL (1.40-6.50); %Basophils 0.3 % (0.0-1.0); %Lymphocytes 10.6 % (21.0-51.0); %Monocytes 9.1 % (0.0-10.0); Mean Platelet Volume 9.7 fL (7.4-10.4)
[2023-09-18 07:13] LABS: Anion Gap 13 mmol/L (10-20); BUN (Urea Nitrogen) 30 mg/dL (8.4-25.7); Calc. Creatinine Clearance 24 mL/min (70-130); Calcium 8.1 mg/dL (7.8-10.44); Carbon Dioxide 26 mmol/L (23-31); Chloride 102 mmol/L (98-107); Estimated GFR 14; Glucose 91 mg/dL (83-110); Potassium 3.1 mmol/L (3.5-5.1); Sodium 138 mmol/L (136-145)
[2023-09-18] MEDS: Amiodarone 200 MG TAB PO SCH ×3 (11:50→20:38)
[2023-09-18] MEDS: Metoprolol Tartrate 25 MG TAB PO SCH ×2 (11:56→20:37)
[2023-09-18] MEDS: Calcitriol 0.25 MCG CAP PO SCH (11:56)
[2023-09-18] MEDS: Apixaban 2.5 MG TAB PO SCH ×2 (11:56→20:38)
[2023-09-18] MEDS: READ PPD TEST SITE PO SCH (12:01)
[2023-09-18] MEDS: cefTRIAXone\\ROCEPHIN 2 GM in Sodium Chloride 0.9% 100 ML IVPB SCH (14:56)
[2023-09-19 05:55] LABS: #Basophils 0.1 thou/uL (0.0-0.2); #Eosinphils 0.3 thou/uL (0.0-0.7); #Monocytes 1.5 thou/uL (0.11-0.59); #Neutrophils 12.7 thou/uL (1.40-6.50); %Basophils 0.3 % (0.0-1.0); %Eosinophils 1.8 % (0.0-10.0); %Monocytes 9.2 % (0.0-10.0); %Neutrophils 76.1 % (42.0-75.0); Hematocrit 28.1 % (42.0-52.0); Hemoglobin 9.5 g/dL (14.0-18.0); Mean Corpuscular HGB CONC 33.8 g/dL (32.0-36.0); Mean Corpuscular Hemoglobin 31.6 pg (27.0-31.0); Mean Corpuscular Volume 93.4 fl (78.0-98.0); Mean Platelet Volume 9.9 fL (7.4-10.4); Platelet Count 276 10x3/uL (130-400); Red Blood Cell (RBC) Count 3.01 mill/uL (4.70-6.10); White Blood Cell (WBC) Count 16.6 10x3/uL (4.8-10.8)
[2023-09-19 06:25] LABS: Anion Gap 13 mmol/L (10-20); BUN (Urea Nitrogen) 17 mg/dL (8.4-25.7); Calc. Creatinine Clearance 34 mL/min (70-130); Calcium 8.3 mg/dL (7.8-10.44); Carbon Dioxide 25 mmol/L (23-31); Chloride 102 mmol/L (98-107); Estimated GFR 22; Glucose 104 mg/dL (83-110); Potassium 3.2 mmol/L (3.5-5.1); Sodium 137 mmol/L (136-145)
[2023-09-19] MEDS ORDERED: Potassium Chloride 20 MEQ TAB PO SCH (07:15)
[2023-09-19] MEDS: Apixaban 2.5 MG TAB PO SCH ×2 (08:14→20:08)
[2023-09-19] MEDS: Metoprolol Tartrate 25 MG TAB PO SCH ×2 (08:14→20:08)
[2023-09-19] MEDS: Calcitriol 0.25 MCG CAP PO SCH (08:14)
[2023-09-19] MEDS: Amiodarone 200 MG TAB PO SCH ×2 (08:15→20:08)
[2023-09-19] MEDS: cefTRIAXone\\ROCEPHIN 2 GM in Sodium Chloride 0.9% 100 ML IVPB SCH (14:42)
[2023-09-19 17:08] LABS: Potassium 3.9 mmol/L (3.5-5.1)
[2023-09-20 07:09] LABS: #Basophils 0.1 thou/uL (0.0-0.2); #Eosinphils 0.2 thou/uL (0.0-0.7); #Monocytes 1.3 thou/uL (0.11-0.59); #Neutrophils 10.1 thou/uL (1.40-6.50); %Basophils 0.5 % (0.0-1.0); %Eosinophils 1.3 % (0.0-10.0); %Lymphocytes 11.6 % (21.0-51.0); %Monocytes 9.8 % (0.0-10.0); %Neutrophils 75.5 % (42.0-75.0); Hematocrit 26.2 % (42.0-52.0); Hemoglobin 8.8 g/dL (14.0-18.0); Mean Corpuscular HGB CONC 33.6 g/dL (32.0-36.0); Mean Corpuscular Hemoglobin 31.5 pg (27.0-31.0); Mean Corpuscular Volume 93.9 fl (78.0-98.0); Mean Platelet Volume 9.8 fL (7.4-10.4); Platelet Count 264 10x3/uL (130-400); RBC Distribution Width 14.2 % (11.5-14.5); Red Blood Cell (RBC) Count 2.79 mill/uL (4.70-6.10); White Blood Cell (WBC) Count 13.4 10x3/uL (4.8-10.8)
[2023-09-20 07:30] LABS: Anion Gap 14 mmol/L (10-20); BUN (Urea Nitrogen) 23 mg/dL (8.4-25.7); Calc. Creatinine Clearance 28 mL/min (70-130); Calcium 8.2 mg/dL (7.8-10.44); Carbon Dioxide 25 mmol/L (23-31); Chloride 104 mmol/L (98-107); Estimated GFR 17; Glucose 97 mg/dL (83-110); Potassium 3.5 mmol/L (3.5-5.1); Sodium 139 mmol/L (136-145)
[2023-09-20] MEDS: Calcitriol 0.25 MCG CAP PO SCH (08:11)
[2023-09-20] MEDS: Amiodarone 200 MG TAB PO SCH ×2 (08:12→21:35)
[2023-09-20] MEDS: Apixaban 2.5 MG TAB PO SCH ×2 (08:12→21:35)
[2023-09-20] MEDS: Metoprolol Tartrate 25 MG TAB PO SCH ×2 (08:49→21:35)
[2023-09-20] MEDS: cefTRIAXone\\ROCEPHIN 2 GM in Sodium Chloride 0.9% 100 ML IVPB SCH (14:11)
[2023-09-21 05:30] LABS: #Basophils 0.1 thou/uL (0.0-0.2); #Eosinphils 0.2 thou/uL (0.0-0.7); #Monocytes 1.3 thou/uL (0.11-0.59); #Neutrophils 9.2 thou/uL (1.40-6.50); %Basophils 0.6 % (0.0-1.0); %Eosinophils 1.5 % (0.0-10.0); %Lymphocytes 12.1 % (21.0-51.0); %Monocytes 10.4 % (0.0-10.0); %Neutrophils 74.5 % (42.0-75.0); Hematocrit 28.4 % (42.0-52.0); Hemoglobin 9.5 g/dL (14.0-18.0); Mean Corpuscular HGB CONC 33.5 g/dL (32.0-36.0); Mean Corpuscular Hemoglobin 30.9 pg (27.0-31.0); Mean Corpuscular Volume 92.5 fl (78.0-98.0); Platelet Count 291 10x3/uL (130-400); RBC Distribution Width 14.4 % (11.5-14.5); Red Blood Cell (RBC) Count 3.07 mill/uL (4.70-6.10); White Blood Cell (WBC) Count 12.3 10x3/uL (4.8-10.8)
[2023-09-21 05:54] LABS: Albumin 3.1 g/dL (3.4-4.8); Anion Gap 15 mmol/L (10-20); BUN (Urea Nitrogen) 18 mg/dL (8.4-25.7); BUN/Creatinine Ratio 6.57; Calc. Creatinine Clearance 37 mL/min (70-130); Calcium 8.1 mg/dL (7.8-10.44); Carbon Dioxide 25 mmol/L (23-31); Chloride 102 mmol/L (98-107); Estimated GFR 24; Glucose 96 mg/dL (83-110); Iron 29 ug/dL (65-175); Iron Binding Capacity, Total 179 mcg/dL (261-462); Phosphorus 3.4 mg/dL (2.3-4.7); Potassium 3.6 mmol/L (3.5-5.1); Sodium 138 mmol/L (136-145)
[2023-09-21] MEDS ORDERED: Iron, Sodium Ferric Gluconate 250 MG in Sodium Chloride 0.9% 250 ML 250 ML IVPB SCH (07:15)
[2023-09-21] MEDS ORDERED: EPOETIN ALFA-EPBX (ESRD) 10,000 UNITS/ML VIAL SC SCH (09:00)
[2023-09-21] MEDS: Amiodarone 200 MG TAB PO SCH ×2 (09:36→21:54)
[2023-09-21] MEDS: Calcitriol 0.25 MCG CAP PO SCH (09:36)
[2023-09-21] MEDS: Apixaban 2.5 MG TAB PO SCH ×2 (09:36→21:54)
[2023-09-21] MEDS: Metoprolol Tartrate 25 MG TAB PO SCH ×2 (09:37→21:54)
[2023-09-21] MEDS: Epoetin (ESRD) 10,000 UNITS/ML VIAL SC SCH ×2 (09:45→09:47)
[2023-09-21] MEDS: cefTRIAXone\\ROCEPHIN 2 GM in Sodium Chloride 0.9% 100 ML IVPB SCH (15:49)
[2023-09-22] MEDS: Amiodarone 200 MG TAB PO SCH ×2 (09:06→20:21)
[2023-09-22] MEDS: Calcitriol 0.25 MCG CAP PO SCH (09:06)
[2023-09-22] MEDS: Metoprolol Tartrate 25 MG TAB PO SCH ×2 (09:06→20:21)
[2023-09-22] MEDS: Apixaban 2.5 MG TAB PO SCH ×2 (09:06→20:21)
[2023-09-22] MEDS: cefTRIAXone\\ROCEPHIN 2 GM in Sodium Chloride 0.9% 100 ML IVPB SCH (14:02)
[2023-09-22 14:09] VITALS: BMI 34.1
[2023-09-22] MEDS: Acetaminophen 500 MG TAB PO PRN (21:43)
[2023-09-23 06:15] LABS: #Basophils 0.1 thou/uL (0.0-0.2); #Eosinphils 0.2 thou/uL (0.0-0.7); #Monocytes 1.2 thou/uL (0.11-0.59); #Neutrophils 6.5 thou/uL (1.40-6.50); %Basophils 0.7 % (0.0-1.0); %Eosinophils 2.1 % (0.0-10.0); %Lymphocytes 16.4 % (21.0-51.0); %Monocytes 12.5 % (0.0-10.0); %Neutrophils 67.9 % (42.0-75.0); Hematocrit 27.1 % (42.0-52.0); Mean Corpuscular HGB CONC 33.2 g/dL (32.0-36.0); Mean Corpuscular Hemoglobin 31.4 pg (27.0-31.0); Mean Corpuscular Volume 94.4 fl (78.0-98.0); Mean Platelet Volume 10.3 fL (7.4-10.4); Platelet Count 281 10x3/uL (130-400); RBC Distribution Width 14.6 % (11.5-14.5); Red Blood Cell (RBC) Count 2.87 mill/uL (4.70-6.10); White Blood Cell (WBC) Count 9.5 10x3/uL (4.8-10.8)
[2023-09-23 06:34] LABS: Anion Gap 15 mmol/L (10-20); BUN (Urea Nitrogen) 32 mg/dL (8.4-25.7); Calc. Creatinine Clearance 29 mL/min (70-130); Calcium 8.4 mg/dL (7.8-10.44); Carbon Dioxide 26 mmol/L (23-31); Chloride 101 mmol/L (98-107); Estimated GFR 18; Glucose 96 mg/dL (83-110); Potassium 3.7 mmol/L (3.5-5.1); Sodium 138 mmol/L (136-145)
[2023-09-23] MEDS: Calcitriol 0.25 MCG CAP PO SCH (09:45)
[2023-09-23] MEDS: Apixaban 2.5 MG TAB PO SCH ×2 (09:45→20:43)
[2023-09-23] MEDS: Amiodarone 200 MG TAB PO SCH ×2 (09:45→20:43)
[2023-09-23] MEDS: Metoprolol Tartrate 25 MG TAB PO SCH ×2 (11:16→20:43)
[2023-09-23] MEDS: Ferrous Sulfate 325 MG TAB PO SCH (17:25)
[2023-09-24 05:31] LABS: #Basophils 0.1 thou/uL (0.0-0.2); #Eosinphils 0.2 thou/uL (0.0-0.7); #Monocytes 1.2 thou/uL (0.11-0.59); #Neutrophils 6.6 thou/uL (1.40-6.50); %Basophils 0.8 % (0.0-1.0); %Eosinophils 1.9 % (0.0-10.0); %Lymphocytes 15.1 % (21.0-51.0); %Monocytes 12.5 % (0.0-10.0); %Neutrophils 69.3 % (42.0-75.0); Hematocrit 26.6 % (42.0-52.0); Hemoglobin 8.9 g/dL (14.0-18.0); Mean Corpuscular HGB CONC 33.5 g/dL (32.0-36.0); Mean Corpuscular Hemoglobin 31.6 pg (27.0-31.0); Mean Corpuscular Volume 94.3 fl (78.0-98.0); Platelet Count 287 10x3/uL (130-400); RBC Distribution Width 14.4 % (11.5-14.5); Red Blood Cell (RBC) Count 2.82 mill/uL (4.70-6.10); White Blood Cell (WBC) Count 9.6 10x3/uL (4.8-10.8)
[2023-09-24 05:59] LABS: Anion Gap 12 mmol/L (10-20); BUN (Urea Nitrogen) 19 mg/dL (8.4-25.7); Calc. Creatinine Clearance 42 mL/min (70-130); Calcium 8.6 mg/dL (7.8-10.44); Carbon Dioxide 29 mmol/L (23-31); Chloride 100 mmol/L (98-107); Estimated GFR 28; Glucose 95 mg/dL (83-110); Potassium 3.7 mmol/L (3.5-5.1); Sodium 137 mmol/L (136-145)
[2023-09-24] MEDS: Amiodarone 200 MG TAB PO SCH ×2 (08:53→20:07)
[2023-09-24] MEDS: Apixaban 2.5 MG TAB PO SCH ×2 (08:53→20:07)
[2023-09-24] MEDS: Calcitriol 0.25 MCG CAP PO SCH (08:53)
[2023-09-24] MEDS: Ferrous Sulfate 325 MG TAB PO SCH ×2 (08:54→18:28)
[2023-09-24] MEDS: Metoprolol Tartrate 25 MG TAB PO SCH ×2 (08:54→20:07)
[2023-09-25 06:12] LABS: #Basophils 0.1 thou/uL (0.0-0.2); #Eosinphils 0.2 thou/uL (0.0-0.7); #Monocytes 1.2 thou/uL (0.11-0.59); %Basophils 0.9 % (0.0-1.0); %Eosinophils 2.1 % (0.0-10.0); %Lymphocytes 19.3 % (21.0-51.0); %Monocytes 12.6 % (0.0-10.0); %Neutrophils 64.7 % (42.0-75.0); Hematocrit 27.7 % (42.0-52.0); Hemoglobin 9.2 g/dL (14.0-18.0); Mean Corpuscular HGB CONC 33.2 g/dL (32.0-36.0); Mean Corpuscular Hemoglobin 31.3 pg (27.0-31.0); Mean Corpuscular Volume 94.2 fl (78.0-98.0); Mean Platelet Volume 10.7 fL (7.4-10.4); Platelet Count 291 10x3/uL (130-400); RBC Distribution Width 14.7 % (11.5-14.5); Red Blood Cell (RBC) Count 2.94 mill/uL (4.70-6.10); White Blood Cell (WBC) Count 9.3 10x3/uL (4.8-10.8)
[2023-09-25 06:48] LABS: Anion Gap 15 mmol/L (10-20); BUN (Urea Nitrogen) 32 mg/dL (8.4-25.7); Calc. Creatinine Clearance 36 mL/min (70-130); Calcium 8.6 mg/dL (7.8-10.44); Carbon Dioxide 26 mmol/L (23-31); Chloride 98 mmol/L (98-107); Estimated GFR 23; Glucose 86 mg/dL (83-110); Potassium 3.7 mmol/L (3.5-5.1); Sodium 135 mmol/L (136-145)
[2023-09-25] MEDS: Ferrous Sulfate 325 MG TAB PO SCH ×2 (08:57→17:45)
[2023-09-25] MEDS: Metoprolol Tartrate 25 MG TAB PO SCH ×3 (08:58→21:01)
[2023-09-25] MEDS: Apixaban 2.5 MG TAB PO SCH ×2 (08:58→21:02)
[2023-09-25] MEDS: Calcitriol 0.25 MCG CAP PO SCH (08:58)
[2023-09-25] MEDS: Amiodarone 200 MG TAB PO SCH ×2 (08:58→21:02)
[2023-09-25] MEDS ORDERED: Activase 2 MG VIAL CATH SCH (11:30)
[2023-09-25] MEDS ORDERED: Benzonatate 100 MG CAP PO PRN (12:34)
[2023-09-25] MEDS: Cefdinir 300 MG CAP PO SCH (21:02)
[2023-09-26 05:16] LABS: #Basophils 0.1 thou/uL (0.0-0.2); #Eosinphils 0.2 thou/uL (0.0-0.7); #Monocytes 1.2 thou/uL (0.11-0.59); #Neutrophils 5.9 thou/uL (1.40-6.50); %Basophils 0.6 % (0.0-1.0); %Eosinophils 2.3 % (0.0-10.0); %Monocytes 13.1 % (0.0-10.0); %Neutrophils 64.6 % (42.0-75.0); Hematocrit 26.2 % (42.0-52.0); Hemoglobin 8.7 g/dL (14.0-18.0); Mean Corpuscular HGB CONC 33.2 g/dL (32.0-36.0); Mean Corpuscular Hemoglobin 31.6 pg (27.0-31.0); Mean Corpuscular Volume 95.3 fl (78.0-98.0); Mean Platelet Volume 10.2 fL (7.4-10.4); Platelet Count 279 10x3/uL (130-400); Red Blood Cell (RBC) Count 2.75 mill/uL (4.70-6.10); White Blood Cell (WBC) Count 9.1 10x3/uL (4.8-10.8)
[2023-09-26 05:36] LABS: Anion Gap 12 mmol/L (10-20); BUN (Urea Nitrogen) 26 mg/dL (8.4-25.7); Calc. Creatinine Clearance 46 mL/min (70-130); Calcium 8.7 mg/dL (7.8-10.44); Carbon Dioxide 29 mmol/L (23-31); Chloride 101 mmol/L (98-107); Estimated GFR 31; Glucose 95 mg/dL (83-110); Potassium 3.9 mmol/L (3.5-5.1); Sodium 138 mmol/L (136-145)
[2023-09-26] MEDS: Apixaban 2.5 MG TAB PO SCH ×2 (08:18→20:44)
[2023-09-26] MEDS: Ferrous Sulfate 325 MG TAB PO SCH ×2 (08:18→17:59)
[2023-09-26] MEDS: Calcitriol 0.25 MCG CAP PO SCH (08:18)
[2023-09-26] MEDS: Metoprolol Tartrate 25 MG TAB PO SCH ×2 (08:18→20:45)
[2023-09-26] MEDS: Amiodarone 200 MG TAB PO SCH ×2 (08:18→20:44)
[2023-09-26 19:41] VITALS: TEMP 98.1
[2023-09-26] MEDS: Cefdinir 300 MG CAP PO SCH (20:45)
[2023-09-26 23:19] VITALS: BP 107/78
== END 2023-09-27 01:14 | DRG 853 ==
LOC: ERS 16:57 → EEVIPCON 16:57 → 2SW 21:08 → OBSVTOIN 09-07 14:12
PROVIDERS: ADMIT Student in an Organized Health Care Education/Training Program; ATTEND Hospitalist
PROC: 3E03329 Introduction of Other Anti-infective into Peripheral Vein, Percutaneous Approach (ICD-10-PCS; 2023-09-07)
PROC: 0S9D3ZZ Drainage of Left Knee Joint, Percutaneous Approach (ICD-10-PCS; 2023-09-08)
PROC: 0SBD4ZZ Excision of Left Knee Joint, Percutaneous Endoscopic Approach (ICD-10-PCS; principal; 2023-09-09)
PROC: 3E033XZ Introduction of Vasopressor into Peripheral Vein, Percutaneous Approach (ICD-10-PCS; 2023-09-09)
PROC: 30233J1 Transfusion of Nonautologous Serum Albumin into Peripheral Vein, Percutaneous Approach (ICD-10-PCS; 2023-09-11)
PROC: 0JH60XZ Insertion of Tunneled Vascular Access Device into Chest Subcutaneous Tissue and Fascia, Open Approach (ICD-10-PCS; 2023-09-14)
PROC: 02HV33Z Insertion of Infusion Device into Superior Vena Cava, Percutaneous Approach (ICD-10-PCS; 2023-09-14)
PROC: B5181ZA Fluoroscopy of Superior Vena Cava using Low Osmolar Contrast, Guidance (ICD-10-PCS; 2023-09-14)
PROC: 5A1D70Z Performance of Urinary Filtration, Intermittent, Less than 6 Hours Per Day (ICD-10-PCS; 2023-09-14)
PROC: B548ZZA Ultrasonography of Superior Vena Cava, Guidance (ICD-10-PCS; 2023-09-14)
DX: A40.0 Sepsis due to streptococcus, group A (principal); A48.3 Toxic shock syndrome; I50.43 Acute on chronic combined systolic (congestive) and diastolic (congestive) heart failure; N17.0 Acute kidney failure with tubular necrosis; J96.01 Acute respiratory failure with hypoxia; S06.9X9A Unspecified intracranial injury with loss of consciousness of unspecified duration, initial encounter; D62 Acute posthemorrhagic anemia; M00.262 Other streptococcal arthritis, left knee; E87.1 Hypo-osmolality and hyponatremia; I48.19 Other persistent atrial fibrillation; E87.20 Acidosis, unspecified; I95.9 Hypotension, unspecified; R91.8 Other nonspecific abnormal finding of lung field; E87.6 Hypokalemia; G47.33 Obstructive sleep apnea (adult) (pediatric); E11.9 Type 2 diabetes mellitus without complications; H26.9 Unspecified cataract; M70.42 Prepatellar bursitis, left knee; M65.862 Other synovitis and tenosynovitis, left lower leg; C44.90 Unspecified malignant neoplasm of skin, unspecified; F32.A Depression, unspecified; M25.562 Pain in left knee; S30.810A Abrasion of lower back and pelvis, initial encounter; M94.262 Chondromalacia, left knee; S83.282A Other tear of lateral meniscus, current injury, left knee, initial encounter; I11.0 Hypertensive heart disease with heart failure; B95.0 Streptococcus, group A, as the cause of diseases classified elsewhere; M25.462 Effusion, left knee; W19.XXXA Unspecified fall, initial encounter; Z79.82 Long term (current) use of aspirin; Z79.899 Other long term (current) drug therapy; Z11.52 Encounter for screening for COVID-19; Z90.89 Acquired absence of other organs; Z98.890 Other specified postprocedural states
CPT/HCPCS: 36415; 36416; 70450; 71045; 71275; 72125; 76770; 76999; 80048; 80053; 80069; 80202; 81001; 82728; 82945; 83036; 83540; 83550; 83605; 83735; 83880; 83970; 84100; 84157; 84484; 85025; 85027; 85060; 85379; 85384; 85610; 85730; 86580; 86704; 86803; 86850; 86900; 86901; 87040; 87070; 87077; 87149; 87186; 87205; 87324; 87340; 87449; 87505; 89051; 89060; 90935; 93005; 93306; 96365; 96372; 96375; 96376; C1751; C1752; G0257; G0378; J0171; J0282; J0613; J0696; J1100; J1160; J1644; J1650; J1885; J1940; J2001; J2020; J2250; J2405; J2543; J2704; J2720; J2916; J3010; J3370; J3370-JW; J3475; J3480; J3490; J7042; J7050; J7070; P9047; Q4081; Q5105; Q9967; S0020